=== PATIENT | female | born 1975 | race Caucasian/White ===

== ENCOUNTER 2016-10-27 00:06 | Emergency (ER) | payer BC, OTHER ==
[~2016-10-27] VITALS: Ht 157.5 cm; Wt 90.7 kg
[2016-10-27] MEDS ORDERED: CYCL10TA9 PO (00:27)
[2016-10-27] MEDS ORDERED: MULT1TAB69 PO (00:27)
[2016-10-27] MEDS ORDERED: RX-TRAMADOL 50 MG (ULTRAM) TAB PPK#4 PO STA (00:33)
[2016-10-27] MEDS ORDERED: PRD20T PO (00:39)
[2016-10-27] MEDS ORDERED: HYDR-3812 PO (00:39)
--- NOTE | 2016-10-27 00:39 | ED Back Pain ---
General Chief Complaint: Back Problems Stated Complaint: SEVERE BACK PAIN Nursing Triage Note: Pt c/o low back pain. Pt reports she has hx low back pain and has been told she has a bulging disc. Pt reports pain is worse tonight and unrelieved by flexeril , motrin, and aleve. Nursing Sepsis Screen: No Definite Risk Source of Information: Patient, Family Exam Limitations: No Limitations History of Present Illness Time Seen by Provider: 00:25 Initial Comments Here with report of low back pain on the right side that is radiating to the buttock and upper leg. 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 She states that she's been working extra recently and may have aggravated her back. She does have the day off today. Denies bowel or bladder incontinence, weakness of her legs or numbness between her legs. Location: Lumbar Spine, Paraspinous Muscles Timing/Duration: 12-24 Hours Severity: Moderate Pain/Injury Location: Back Radiation: Buttocks, Upper Legs Method of Injury: Unknown Modifying Factors: Worse With Movement Associated Symptoms: muscle spasmsNo weakness, No numbness in legs/feet, No tingling in legs/feet, No sensory/motor loss, lower back painNo loss of bladder control, No loss of bowel control Allergies and Home Medications Allergies Coded Allergies: No Known Drug Allergies (Unverified , 10/27/16) Home Medications Cyclobenzaprine HCl 10 Mg Tablet Unknown Dose PO PRN (Reported) Multivitamin 1 Each Tablet 1 EACH PO DAILY (Reported) Constitutional: see HPINo chills, No fever Respiratory: no symptoms reported Cardiovascular: no symptoms reported Genitourinary: no symptoms reported Musculoskeletal: see HPI back pain Psychiatric/Neurological: No Symptoms Reported Past Rbqudxt-Wyewmg-[place] Hx Patient Social History Alcohol Use: Denies Use Recreational Drug Use: No Smoking Status: Never a Smoker Recent Foreign Travel: No Contact w/Someone Who Travel: No Recent Infectious Disease Expo: No Recent Hopitalizations: No Physical Abuse Screen: No Sexual Abuse: No Seasonal Allergies Seasonal Allergies: No Surgeries HX Surgeries: Yes Surgeries: Section, Orthopedic Respiratory Hx Respiratory Disorders: No Cardiovascular Hx Cardiac Disorders: No Neurological Hx Neurological Disorders: No Reproductive System Hx Reproductive Disorders: No Genitourinary Hx Genitourinary Disorders: No Gastrointestinal Hx Gastrointestinal Disorders: No Musculoskeletal Hx Musculoskeletal Disorders: Yes Musculoskeletal Disorders: Chronic Back Pain Endocrine Hx Endocrine Disorders: No HEENT HX ENT Disorders: No Cancer Hx Cancer: No Psychosocial Hx Psychiatric Problems: No Integumentary HX Skin/Integumentary Disorder: No Blood Transfusions Hx Blood Disorders: No Reviewed Nursing Assessment Reviewed/Agree w Nursing PMH: Yes Family Medical History Significant Family History: No Pertinent Family Hx Physical Exam Vital Signs Vital Sign - Last 12Hours 10/27/16 00:17 Temp 96.8 Pulse 77 Resp 18 B/P 140/113 Pulse Ox 98 O2 Delivery Room Air Capillary Refill : Less Than 3 Seconds General Appearance: No Apparent Distress WD/WN Cardiovascular: Regular Rate, Rhythm No Edema Respiratory: Lungs Clear Normal Breath Sounds Gastrointestinal: Non Tender Soft Back: No CVA Tenderness No Vertebral Tenderness Muscle Spasm Other (tender along the area on the right low back towards the buttock. Full range of motion both legs.) Extremity: Normal Inspection Normal Range of Motion Non Tender Neurologic/Psychiatric: Alert Oriented x3 No Motor/Sensory Deficits Progress/Results/Core Measures Results/Orders My Orders Orders-SAGAR OBRIEN MD Prednisone Tablet (Deltasone Tablet) (10/27/16 00:45) Rx-Tramadol Hcl (Rx-Ultram) (10/27/16 00:33) Vital Signs/I&O Vital Sign - Last 12Hours 10/27/16 00:17 Temp 96.8 Pulse 77 Resp 18 B/P 140/113 Pulse Ox 98 O2 Delivery Room Air Blood Pressure Mean: 122 Progress Note : Progress Note Seen and evaluated. Prednisone 40 mg by mouth given. Tramadol go pack. Discharged home with return precautions. Patient verbalize understanding instructions and agreement with plan. Departure Impression Impression: Primary Impression: Lumbar radiculopathy Disposition: 01 HOME, SELF-CARE Condition: Stable Departure-Patient Inst. Decision time for Depature: 00:37 Referrals: ESTER TENORIO MD (PCP) Primary Care Physician Patient Instructions: Lumbar Muscle Strain (DC), Radiculopathy (DC) Add. Discharge Instructions: All discharge instructions reviewed with patient and/or family. Voiced understanding. You may take Aleve 2 tablets twice daily for the next 2 or 3 days and then one tablet twice daily thereafter as needed for back pain. Drink plenty of fluids. Take other medications as prescribed. If you are not taking the hydrocodone containing pain medicine prescribed, you may take 2 extra strength Tylenol every 8 hours as needed for pain instead. Return for worse pain, weakness, problems with walking or going to the bathroom, numbness between your legs or other concerns as needed. Follow-up with your Dr. in a few days for recheck. Scripts Prednisone 20 Mg Tab40 Mg PO DAILY #12 TAB Prov:SAGAR OBRIEN MD 10/27/16 Hydrocodone/Acetaminophen (Hydrocodon -Acetaminophen 5-325)1 Each Tablet1-2 Each PO Q6H PRN PAIN #12 TAB Ref 0 Prov:SAGAR OBRIEN MD 10/27/16 SAGAR OBRIEN MD Oct 27, 2016 00:39
[2016-10-27 00:44] VITALS: BP 132/100
[2016-10-27] MEDS ORDERED: predniSONE 20 MG TAB PO ONE (00:45)
== END 2016-10-27 00:44 | disposition home or self-care (01) ==
LOC: EDUNIT# 00:06 → ER 00:12
DX: M54.16 Radiculopathy, lumbar region (principal)
CPT/HCPCS: 99283